=== PATIENT | female | born 1990 | race American Indian/Alaskan Native ===

== ENCOUNTER 2017-09-25 21:26 | Emergency (ER) | payer SELFPAY ==
[2017-09-25 22:25] VITALS: BP 128/83
== END 2017-09-26 00:50 | disposition left against medical advice (07) ==
LOC: ED 21:26
DX: S61.419A Laceration without foreign body of unspecified hand, initial encounter (principal); Z53.21 Procedure and treatment not carried out due to patient leaving prior to being seen by health care provider; W45.8XXA Other foreign body or object entering through skin, initial encounter; Y93.89 Activity, other specified; Y99.8 Other external cause status; Y92.89 Other specified places as the place of occurrence of the external cause

== ENCOUNTER 2017-09-29 14:30 | Emergency (ER) | payer OTHER ==
[2017-09-29] MEDS ORDERED: BOOSTRIX IM ONE (15:15)
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
== END 2017-09-29 15:53 | disposition home or self-care (01) ==
LOC: ED 14:30
DX: S61.411A Laceration without foreign body of right hand, initial encounter (principal); W25.XXXA Contact with sharp glass, initial encounter; Y93.89 Activity, other specified; Y92.89 Other specified places as the place of occurrence of the external cause; Y99.8 Other external cause status
CPT/HCPCS: 90471; 90715; 99281

== ENCOUNTER 2019-12-02 13:07 | Emergency (ER) | payer OTHER ==
[2019-12-02] MEDS ORDERED: NAPROXEN 500 MG TAB PO ONE (13:55)
[2019-12-02] MEDS ORDERED: dexAMETHasone 4 MG/ML VIAL IM ONE (13:55)
--- NOTE | 2019-12-02 14:04 | Emergency Department Report ---
ED Extremity Problem HPI - General Chief complaint: Extremity Injury, Lower Stated complaint: PAIN IN (R) HIP/(R)LEG Time Seen by Provider: 12/02/19 13:42 Source: patient Mode of arrival: Ambulatory Limitations: No Limitations - History of Present Illness Initial comments: Patient is a 29-year-old female presents emergency room with complaints of right hip pain that radiates down her leg that began 3 days ago. 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 She states that when she starts to move around she feels the pain. She states she now has discomfort with walking. She denies any fall, injury, numbness, weakness, leg swelling. She denies any calf pain. She denies any past medical history or allergies to medications. She states her last menstrual cycle was 11/23/2019. - Related Data Previous Rx's Medication Instructions Recorded Last Taken Type Cephalexin [Keflex] 500 mg PO BID #14 capsule 09/29/17 Unknown Rx Ibuprofen [Motrin] 600 mg PO Q8H PRN #25 tablet 09/29/17 Unknown Rx Naproxen [EC-Naproxen] 500 mg PO BID PRN #20 tablet. 12/02/19 Unknown Rx Allergies Allergy/AdvReac Type Severity Reaction Status Date / Time No Known Allergies Allergy Unverified 09/25/17 22:22 ED Review of Systems ROS: Stated complaint: PAIN IN (R) HIP/(R)LEG Other details as noted in HPI Comment: All other systems reviewed and negative ED Past Medical Hx - Past Medical History Previous Medical History?: No - Surgical History Past Surgical History?: No - Social History Smoking Status: Former Smoker Substance Use Type: Alcohol - Medications Home Medications: Home Medications Medication Instructions Recorded Confirmed Last Taken Type Cephalexin [Keflex] 500 mg PO BID #14 capsule 09/29/17 Unknown Rx Ibuprofen [Motrin] 600 mg PO Q8H PRN #25 tablet 09/29/17 Unknown Rx Naproxen [EC-Naproxen] 500 mg PO BID PRN #20 tablet. 12/02/19 Unknown Rx ED Physical Exam - General Limitations: No Limitations General appearance: alert, in no apparent distress - Head Head exam: Present: atraumatic, normocephalic - Eye Eye exam: Present: normal appearance - ENT ENT exam: Present: mucous membranes moist - Extremities Exam Extremities exam: Present: other (no bony ttp of the RLE, FROM of the RLE with mild discomfort upon full flexion of the hip, no pain with abduction or adduction, no deformity, no leg edema, no calf ttp, no skin changes, neurovascularly intact) - Neurological Exam Neurological exam: Present: alert, oriented X3 - Psychiatric Psychiatric exam: Present: normal affect, normal mood - Skin Skin exam: Present: warm, dry, intact ED Course Vital Signs 12/02/19 13:09 Temperature 97.8 F Pulse Rate 89 Respiratory 18 Rate Blood Pressure 162/102 O2 Sat by Pulse 96 Oximetry ED Medical Decision Making - Medical Decision Making Patient is a 29-year-old female presents emergency room with complaints of right hip pain that radiates down her leg that began 3 days ago. 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 She states that when she starts to move around she feels the pain. She states she now has discomfort with walking. She denies any fall, injury, numbness, weakness, leg swelling. She denies any calf pain. She denies any past medical history or allergies to medications. She states her last menstrual cycle was 11/23/2019. on exam: no bony ttp of the RLE, FROM of the RLE with mild discomfort upon full flexion of the hip, no pain with abduction or adduction, no deformity, no leg edema, no calf ttp, no skin changes, neurovascularly intact. Patient has pain in the hip flexor with full flexion, no acute traumatic injury, no deformity, no skin changes, no clinical signs of DVT, no clinical signs of septic joint. Patient given naproxen and dexamethasone IM. Patient given a handout on hip flexor stretches. Patient given prescription for naproxen. Patient will be referred to orthopedic and primary care physician. Advised patient please take medication as prescribed as needed. May use ice pack, heating pad, rest, Epson salt bath. Follow-up with an orthopedic doctor. Follow-up with a primary care doctor. Please follow-up with a primary care doctor regarding your elevated blood pressure during todays visit. Take your blood pressure 3 times a day and keep a blood pressure log and take this to the primary care doctor. Eat a low-sodium (low salt) diet. Incorporate 30 minutes of daily exercise. Return to the emergency room for any new or worsening symptoms. Critical care attestation.: If time is entered above; I have spent that time in minutes in the direct care of this critically ill patient, excluding procedure time. ED Disposition Clinical Impression: Right hip pain, Elevated blood pressure reading Disposition: TO HOME OR SELFCARE Is pt being admited?: No Does the pt Need Aspirin: No Condition: Stable Instructions: Arthralgia (ED) Additional Instructions: please take medication as prescribed as needed. May use ice pack, heating pad, rest, Epson salt bath. Follow-up with an orthopedic doctor. Follow-up with a primary care doctor. Please follow-up with a primary care doctor regarding your elevated blood pressure during todays visit. Take your blood pressure 3 times a day and keep a blood pressure log and take this to the primary care doctor. Eat a low-sodium (low salt) diet. Incorporate 30 minutes of daily exercise. Return to the emergency room for any new or worsening symptoms. Prescriptions: Naproxen [EC-Naproxen] 500 mg PO BID PRN #20 tablet.dr YBARRA Reason: pain Referrals: NISHANT BURT MD [Staff Physician] - 3-5 Days [facility] [Provider Group] - 3-5 Days [facility] [Outside] - 3-5 Days BETSY LONDONO MD [Staff Physician] - 3-5 Days [facility] [Provider Group] - 3-5 Days Time of Disposition: 14:04 Print Language: HEBREW
[2019-12-04 12:40] VITALS: BP 162/102
== END 2019-12-02 14:51 | disposition home or self-care (01) ==
LOC: ED 13:07
DX: M25.551 Pain in right hip (principal); R03.0 Elevated blood-pressure reading, without diagnosis of hypertension; Z87.891 Personal history of nicotine dependence; Z79.1 Long term (current) use of non-steroidal anti-inflammatories (NSAID); Z79.899 Other long term (current) drug therapy
CPT/HCPCS: 96372; 99282; J1100